=== PATIENT | female | born 1970 | race Caucasian/White ===

== ENCOUNTER 2018-02-05 16:44 | Observation (INO) | payer OTHER ==
[~2018-02-05] VITALS: Ht 185.4 cm; Wt 113.4 kg
[~2018-02-05 16:44] MED LIST: B-125000 MCG SL; CIPRO500 MG OR; FISH OIL300 MG OR; FOLIC ACID800 MC1; LEXAPRO10 MG PO; MSM1000 MG PO; MULTI VIT; OSTEO BI-FLEX R1 TAB PO; PROTONIX40 M2 PO; PYRIDIUM200 MG OR; SYNTHROID50 MCG PO; WELLBUTRIN SR150 M1 OR
[2018-02-05 18:57] LABS: HEMATOCRIT 42.1 % (37.0-47.0); HEMOGLOBIN 14.8 g/dl (12.0-16.0); IMMATURE GRANULOCYTES 0.4 % (0.0-1.0); MEAN CELL VOLUME 88.4 fL CALC (80.0-100.0); MEAN CORPUSCULAR HGB 31.1 pG CALC (26.0-32.0); MEAN CORPUSCULAR HGB CONC 35.2 g/L CALC (32.0-36.0); NEUT# 4.26 thou/uL (2.00-7.15); RED BLOOD COUNT 4.76 mill/uL (4.20-5.60); RED CELL DISTRI WIDTH 11.9 % (11.5-15.5)
[2018-02-05 19:09] LABS: ANION GAP 17 (6-22 (CALC)); BUN 12 mg/dL (7-17); BUN/CREATININE RATIO 11 (12-20 (CALC)); CARBON DIOXIDE 23 mmol/l (22-30); CHLORIDE 104 mmol/l (95-108); CREATININE 1.1 mg/dL (0.5-1.0); GFR 53 ML/MIN (>=60 (CALC)); GFR FOR AFR.AMER. > 60 ML/MIN (>=60 (CALC)); POTASSIUM 3.6 mmol/l (3.5-5.1); SODIUM 140 mmol/l (137-146)
[2018-02-05 20:35] VITALS: BP 130/68; BP 138/78
[2018-02-05 21:05] VITALS: BP 151/70
[2018-02-05 21:20] VITALS: BP 136/70
[2018-02-05 21:52] VITALS: BP 131/61
[2018-02-05 22:00] VITALS: BP 136/70
[2018-02-05 23:51] VITALS: BP 121/75
[2018-02-06 04:47] VITALS: BP 126/85
[2018-02-06 08:09] VITALS: BP 149/77
[2018-02-06 16:06] VITALS: BP 136/67
== END 2018-02-06 16:20 | disposition home or self-care (01) | DRG 909 ==
LOC: ED 16:44 → ED-I 17:46 → ED 17:57 → MS2 17:58
PROVIDERS: Family Medicine; ADMIT Internal Medicine; ATTEND Internal Medicine
PROC: 0Y6T0Z2 Detachment at Right 3rd Toe, Mid, Open Approach (ICD-10-PCS; principal; 2018-02-05)
DX: S98.141A Partial traumatic amputation of one right lesser toe, initial encounter (principal); F32.9 Major depressive disorder, single episode, unspecified; K21.9 Gastro-esophageal reflux disease without esophagitis; W22.8XXA Striking against or struck by other objects, initial encounter; Y93.H9 Activity, other involving exterior property and land maintenance, building and construction; Y92.007 Garden or yard of unspecified non-institutional (private) residence as the place of occurrence of the external cause; Z98.84 Bariatric surgery status; Z87.891 Personal history of nicotine dependence

== ENCOUNTER → 2018-10-29 | Outpatient (REF) ==
[2018-10-29 09:02] LABS: CHOLESTEROL HDL RATIO 2.3 (<4.4 (CALC))
== END | disposition home or self-care (01) | DRG 951 ==
LOC: LAB 07:18
PROVIDERS: ATTEND Family Medicine
DX: Z02.6 Encounter for examination for insurance purposes (principal)

== ENCOUNTER 2021-03-25 06:05 | Emergency (ER) | payer OTHER ==
[2021-03-25 06:45] LABS: HEMATOCRIT 32.7 % (37.0-47.0); HEMOGLOBIN 10.9 g/dl (12.0-16.0); IMMATURE GRANULOCYTES 0.5 % (0.0-5.0); MEAN CELL VOLUME 90.6 fL CALC (80.0-100.0); MEAN CORPUSCULAR HGB 30.2 pG CALC (26.0-32.0); MEAN CORPUSCULAR HGB CONC 33.3 g/dL CAL (32.0-36.0); NEUT# 5.4 thou/uL (2.00-7.15); RED BLOOD COUNT 3.61 mill/uL (4.20-5.60); RED CELL DISTRI WIDTH 11.7 % (11.5-15.5)
[2021-03-25 07:10] LABS: ALKALINE PHOSPHATASE 78 u/l (38-126); AMYLASE 127 u/l (30-110); ANION GAP 16 (6-22 (CALC)); BUN 12 mg/dL (7-17); BUN/CREATININE RATIO 16 (12-20 (CALC)); CARBON DIOXIDE 24 mmol/l (22-30); CHLORIDE 100 mmol/l (95-108); CREATININE 0.7 mg/dL (0.5-1.0); GFR > 60 ML/MIN (>=60 (CALC)); GFR FOR AFR.AMER. > 60 ML/MIN (>=60 (CALC)); LIPASE 645 u/l (23-300); POTASSIUM 3.4 mmol/l (3.5-5.1); SGOT/AST 30 u/l (14-36); SODIUM 136 mmol/l (137-146); TOTAL PROTEIN 6.5 g/dL (6.3-8.2)
[2021-03-25 07:16] LABS: ALBUMIN 3.2 g/dL (3.2-5.0); BILIRUBIN, TOTAL 0.8 mg/dL (0.0-1.4)
[2021-03-25] MEDS ORDERED: DECADRON4 MG PO (08:16)
[2021-03-25 08:19] VITALS: BP 140/82
[2021-03-25] MEDS ORDERED: PROMETHAZINE HY25 M1 PO (08:39)
== END 2021-03-25 11:16 | disposition home or self-care (01) | DRG 177 ==
LOC: ED 06:05
PROVIDERS: Family Medicine
DX: U07.1 COVID-19 (principal); J12.82 Pneumonia due to coronavirus disease 2019; E86.0 Dehydration; F32.9 Major depressive disorder, single episode, unspecified; Z98.84 Bariatric surgery status
CPT/HCPCS: S0164

== ENCOUNTER 2022-10-02 02:14 | Emergency (ER) | payer OTHER ==
[~2022-10-02] VITALS: Ht 185.4 cm; Wt 106.0 kg
[~2022-10-02 02:14] MED LIST changes: +BUPROPION HCL150 MG PO; +DECADRON4 MG PO; +PROMETHAZINE HY25 M1 PO; -WELLBUTRIN SR150 M1 OR
[2022-10-02] MEDS ORDERED: LEXAPRO10 MG PO (02:59)
[2022-10-02] MEDS ORDERED: GABAPENTIN100 MG PO (03:00)
[2022-10-02] MEDS ORDERED: PERCOCET 10/31 COMBO PO (03:01)
[2022-10-02] MEDS ORDERED: FISH OIL1400 MG PO (03:02)
== END 2022-10-02 03:53 | disposition home or self-care (01) | DRG 301 ==
LOC: ED 02:14
DX: I83.892 Varicose veins of left lower extremity with other complications (principal)

== ENCOUNTER 2022-12-17 14:50 | Emergency (ER) | payer OTHER ==
[2022-12-17] VITALS (9 sets, daily range): BP systolic 109–130; BP diastolic 57–92
[~2022-12-17] VITALS: Ht 185.4 cm; Wt 102.0 kg
[~2022-12-17 14:50] MED LIST changes: +FISH OIL1400 MG PO; +GABAPENTIN100 MG PO; +PERCOCET 10/31 COMBO PO
[2022-12-17] MEDS ORDERED: METOPROL TAR25 M1 PO (15:11)
== END 2022-12-17 18:57 | disposition home or self-care (01) | DRG 301 ==
LOC: ED 14:50
DX: I83.892 Varicose veins of left lower extremity with other complications (principal)

== ENCOUNTER 2023-08-01 19:52 | Emergency (ER) | payer OTHER ==
[~2023-08-01] VITALS: Ht 185.4 cm; Wt 100.0 kg
[~2023-08-01 19:52] MED LIST changes: +METOPROL TAR25 M1 PO
[2023-08-01 19:57] VITALS: BP 143/90
[2023-08-01 20:01] VITALS: BP 130/88
[2023-08-01 20:15] VITALS: BP 133/82
[2023-08-01 20:31] VITALS: BP 129/82
== END 2023-08-01 20:50 | disposition home or self-care (01) | DRG 301 ==
LOC: ED 19:52
DX: I83.892 Varicose veins of left lower extremity with other complications (principal); I10 Essential (primary) hypertension

== ENCOUNTER 2024-03-31 08:11 | Observation (INO) | payer OTHER ==
[~2024-03-31] VITALS: Ht 185.4 cm; Wt 106.8 kg
[2024-03-31] VITALS (23 sets, daily range): BP systolic 88–139; BP diastolic 39–71
[2024-03-31] MEDS ORDERED: ONDANSETRON HCl 4 MG/2 ML SDV IV ONE (08:35)
[2024-03-31] MEDS ORDERED: SODIUM CHLORIDE 0.9% 1,000 ML IV ONE ×3 (08:35→09:45)
[2024-03-31 09:10] LABS: ALBUMIN 3.5 g/dL (3.2-5.0); CREATININE 1.9 mg/dL (0.5-1.0); TOTAL PROTEIN 6.7 g/dL (6.3-8.2)
[2024-03-31 09:15] LABS: BILIRUBIN, TOTAL 0.6 mg/dL (0.02-1.3); POTASSIUM 3.3 mmol/l (3.5-5.1)
[2024-03-31 09:16] LABS: URINE BLOOD DIPSTICK Trace-lysed (NEGATIVE); URINE GLUCOSE - DIPSTICK Negative (NEGATIVE); URINE KETONE Trace mg/dL (NEGATIVE); URINE NITRITE - DIPSTICK Negative (Negative); URINE PROTEIN - DIPSTICK 30 mg/dL (NEG-TRACE)
[2024-03-31 09:16] LABS: BASO% 0.1 % (0-3); EOS% 0.1 % (0-8); HEMATOCRIT 30.6 % (37.0-47.0); HEMOGLOBIN 9.7 g/dl (12.0-16.0); IMMATURE GRANULOCYTES 0.5 % (0.0-5.0); LYMPH% 3.1 % (15-41); MEAN CELL VOLUME 86.4 fL CALC (80.0-100.0); MEAN CORPUSCULAR HGB 27.4 pG CALC (26.0-32.0); MEAN CORPUSCULAR HGB CONC 31.7 g/dL CAL (32.0-36.0); MONO% 9.2 % (2-13); NEUT# 8.08 thou/uL (2.00-7.15); RED BLOOD COUNT 3.54 mill/uL (4.20-5.60); RED CELL DISTRI WIDTH 15.1 % (11.5-15.5)
[2024-03-31 09:18] LABS: URINE COLOR Yellow; URINE LEUK ESTERASE Moderate (NEGATIVE)
[2024-03-31 09:19] LABS: URINE BACTERIA MODERATE hpf; URINE EPITHELIAL CELLS MODERATE EPI/hpf (0-FEW); URINE RBC 0-2 RBC/hpf (0-5)
[2024-03-31] MEDS ORDERED: cefTRIAXone SODIUM 2 GM in SODIUM CHLORIDE 0.9% 100 ML IV ONE (09:30)
[2024-03-31] MEDS ORDERED: SODIUM CHLORIDE 0.9% 250 ML IV ONE (09:45)
[2024-03-31] MEDS ORDERED: POTASSIUM CHLORIDE 20 MEQ/TAB PO ONE (11:40)
[2024-03-31] MEDS ORDERED: SODIUM CHLORIDE 0.9% 1,000 ML IV PRN (13:20)
[2024-03-31] MEDS ORDERED: ACETAMINOPHEN 325 MG/TAB PO PRN (13:20)
[2024-03-31] MEDS ORDERED: MAGNESIUM HYDROXIDE 30 ML UDC PO PRN (13:20)
[2024-03-31] MEDS ORDERED: oxyCODONE 10MG/APAP 325 MG 1 COMBO TAB PO PRN (13:25)
[2024-03-31] MEDS ORDERED: CLARIFY DOSE PO PRN (16:55)
[2024-03-31] MEDS ORDERED: IBUPROFEN 600 MG/TAB PO SCH (18:45)
[2024-03-31] MEDS ORDERED: ENOXAPARIN SODIUM 30 MG/0.3 ML INJ SC SCH (21:00)
[2024-03-31] MEDS ORDERED: GABAPENTIN 100 MG/CAP PO SCH (21:00)
[2024-03-31] MEDS ORDERED: buPROPion HCL 150 MG TAB SR PO SCH (21:00)
[2024-03-31] MEDS ORDERED: ENOXAPARIN SODIUM 40 MG/0.4 ML SYR SC SCH (21:00)
[2024-04-01] VITALS (9 sets, daily range): BP systolic 89–149; BP diastolic 50–75
[2024-04-01 05:07] LABS: HEMATOCRIT 25.7 % (37.0-47.0); HEMOGLOBIN 8.1 g/dl (12.0-16.0); MEAN CORPUSCULAR HGB 27.7 pG CALC (26.0-32.0); MEAN CORPUSCULAR HGB CONC 31.5 g/dL CAL (32.0-36.0); RED BLOOD COUNT 2.92 mill/uL (4.20-5.60); RED CELL DISTRI WIDTH 15.5 % (11.5-15.5)
[2024-04-01 05:25] LABS: CREATININE 1.4 mg/dL (0.5-1.0); MAGNESIUM 2.4 mg/dL (1.6-2.3); POTASSIUM 3.6 mmol/l (3.5-5.1)
[2024-04-01 05:52] LABS: BILIRUBIN, TOTAL 0.2 mg/dL (0.02-1.3); TOTAL PROTEIN 5.1 g/dL (6.3-8.2)
[2024-04-01 05:53] LABS: ALBUMIN 2.5 g/dL (3.2-5.0)
[2024-04-01] MEDS ORDERED: ONDANSETRON HCl 4 MG/2 ML SDV IV PRN (06:25)
[2024-04-01] MEDS ORDERED: ESCITALOPRAM 10 MG/TAB PO SCH (09:00)
[2024-04-01] MEDS ORDERED: cefTRIAXone SODIUM 2 GM in SODIUM CHLORIDE 0.9% 100 ML IV SCH (09:00)
[2024-04-01] MEDS ORDERED: PANTOPRAZOLE SODIUM Sesquihydr 40 MG/TAB PO SCH (09:00)
[2024-04-01] MEDS ORDERED: CYANOCOBALAMIN 1000 MCG/ML IM SCH (10:30)
[2024-04-01 10:37] LABS: HEMATOCRIT 27.9 % (37.0-47.0); HEMOGLOBIN 8.8 g/dl (12.0-16.0); MEAN CELL VOLUME 88.3 fL CALC (80.0-100.0); MEAN CORPUSCULAR HGB 27.8 pG CALC (26.0-32.0); MEAN CORPUSCULAR HGB CONC 31.5 g/dL CAL (32.0-36.0); RED BLOOD COUNT 3.16 mill/uL (4.20-5.60); RED CELL DISTRI WIDTH 15.7 % (11.5-15.5)
[2024-04-01] MEDS ORDERED: IRON DEXTRAN 100 MG/2 ML AMP IV ONE (11:35)
[2024-04-01] MEDS ORDERED: FERUMOXYTOL IV SCH (12:30)
[2024-04-01] MEDS ORDERED: SODIUM CHLORIDE 0.9% IV SCH (12:30)
[2024-04-01] MEDS ORDERED: IRON DEXTRAN 100 MG/2 ML AMP IV SCH (12:30)
[2024-04-02] VITALS: BP 116/65
[2024-04-02 04:00] VITALS: BP 119/71
[2024-04-02 04:34] VITALS: BP 119/71
[2024-04-02 05:19] LABS: BASO% 0.2 % (0-3); EOS% 0.4 % (0-8); HEMATOCRIT 30.2 % (37.0-47.0); HEMOGLOBIN 9.3 g/dl (12.0-16.0); IMMATURE GRANULOCYTES 0.6 % (0.0-5.0); LYMPH% 17.6 % (15-41); MEAN CELL VOLUME 88.6 fL CALC (80.0-100.0); MEAN CORPUSCULAR HGB 27.3 pG CALC (26.0-32.0); MEAN CORPUSCULAR HGB CONC 30.8 g/dL CAL (32.0-36.0); MONO% 12.4 % (2-13); NEUT# 3.73 thou/uL (2.00-7.15); NEUT% 68.8 % (42-76); RED BLOOD COUNT 3.41 mill/uL (4.20-5.60); RED CELL DISTRI WIDTH 15.7 % (11.5-15.5)
[2024-04-02 05:30] LABS: BILIRUBIN, TOTAL 0.2 mg/dL (0.02-1.3); CREATININE 1.3 mg/dL (0.5-1.0); MAGNESIUM 2.3 mg/dL (1.6-2.3); POTASSIUM 3.5 mmol/l (3.5-5.1); TOTAL PROTEIN 5.9 g/dL (6.3-8.2)
[2024-04-02 06:47] VITALS: BP 116/71
[2024-04-02] MEDS ORDERED: OMNICEF300 MG PO (09:48)
== END 2024-04-02 11:40 | disposition home or self-care (01) | DRG 690 ==
LOC: ED 08:11 → ED-I 11:13 → ED 11:37 → MS2 11:38
PROVIDERS: Family Medicine; Student in an Organized Health Care Education/Training Program; ADMIT Internal Medicine; ATTEND Internal Medicine
DX: N30.00 Acute cystitis without hematuria (principal); B96.1 Klebsiella pneumoniae [K. pneumoniae] as the cause of diseases classified elsewhere; N17.9 Acute kidney failure, unspecified; E87.1 Hypo-osmolality and hyponatremia; E86.0 Dehydration; E87.6 Hypokalemia; I10 Essential (primary) hypertension; D64.9 Anemia, unspecified; R16.1 Splenomegaly, not elsewhere classified; F32.A Depression, unspecified; F10.10 Alcohol abuse, uncomplicated; Z87.891 Personal history of nicotine dependence; Z98.84 Bariatric surgery status
CPT/HCPCS: G0378; J1650; J3420; Q0138; Q9967